=== PATIENT | female | born 1960 | race Caucasian/White ===

== ENCOUNTER → 2023-12-08 11:34 | Outpatient (REF) | payer OTHER, SELFPAY | LOC: HWRAD 11:34 | PROVIDERS: ATTENDING PHYSICIAN Internal Medicine; FAMILY PHYSICIAN Emergency Medicine | DX: M25.552 Pain in left hip (principal) | CPT/HCPCS: 73502 ==

== ENCOUNTER → 2024-03-11 11:00 | Outpatient (REF) | payer OTHER, SELFPAY | LOC: HWRAD 11:00 | PROVIDERS: ATTENDING PHYSICIAN Emergency Medicine; REFERRING PHYSICIAN Internal Medicine | DX: M25.552 Pain in left hip (principal); M25.561 Pain in right knee | CPT/HCPCS: 73502; 73564 ==

== ENCOUNTER → 2024-04-13 11:10 | Outpatient (REF) | payer OTHER, SELFPAY | LOC: HWRAD 11:10 | PROVIDERS: ATTENDING PHYSICIAN Emergency Medicine | DX: R05.1 Acute cough (principal); R07.89 Other chest pain | CPT/HCPCS: 71046 ==

== ENCOUNTER → 2024-06-01 07:02 | Outpatient (REF) | payer OTHER, SELFPAY | LOC: PAVMRI 07:02 | PROVIDERS: ATTENDING PHYSICIAN Physical Medicine & Rehabilitation Pain Medicine; FAMILY PHYSICIAN Emergency Medicine; OTHER PHYSICIAN Internal Medicine | DX: M25.552 Pain in left hip (principal); M87.052 Idiopathic aseptic necrosis of left femur | CPT/HCPCS: 73721 ==

== ENCOUNTER → 2024-06-06 10:10 | Outpatient (REF) | payer OTHER, SELFPAY | LOC: HWRAD 10:10 | PROVIDERS: ATTENDING PHYSICIAN Internal Medicine Gastroenterology; FAMILY PHYSICIAN Emergency Medicine | DX: R19.4 Change in bowel habit (principal) | CPT/HCPCS: 74018 ==

== ENCOUNTER → 2025-01-16 07:57 | Outpatient (REF) | payer OTHER, SELFPAY | LOC: EMG 07:57 | PROVIDERS: ATTENDING PHYSICIAN Emergency Medicine; OTHER PHYSICIAN Internal Medicine | DX: R20.0 Anesthesia of skin (principal); R20.2 Paresthesia of skin; G56.03 Carpal tunnel syndrome, bilateral upper limbs | CPT/HCPCS: 95886; 95911 ==

== ENCOUNTER → 2025-01-31 12:48 | Outpatient (REF) | payer OTHER, SELFPAY | LOC: HWWDC 12:48 | PROVIDERS: ATTENDING PHYSICIAN Emergency Medicine | DX: Z12.31 Encounter for screening mammogram for malignant neoplasm of breast (principal) | CPT/HCPCS: 77063; 77067 ==

== ENCOUNTER 2025-07-19 07:15 | Emergency (ER) | payer OTHER, SELFPAY ==
[2025-07-19 07:20] VITALS: BP 144/91
[2025-07-19 07:35] VITALS: BP 130/72
[2025-07-19 08:00] VITALS: BP 143/79
--- NOTE | 2025-07-19 08:54 | ED.GENMED ---
History of Present Illness
<RAMÍREZ Alexander - Last Filed: 07/19/25 09:44>
General
Chief Complaint: DVT/Possible Blood Clot
Source: patient
Exam Limitations: none
Time Seen by Provider: 07/19/25 07:48
Nursing documentation reviewed up to this point in time: agreed with
History of Present Illness
History of Present Illness:
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 Patient denies any trauma to the area. Patient was seen at her PCP 2 days ago
for these symptoms and was instructed to come to the ED for an ultrasound.
Past History
<RAMÍREZ Alexander - Last Filed: 07/19/25 09:44>
Past History
ED Past Medical History: Asthma and Other (Chronic sinusitis, MRSA, Colitis)
ED Past Surgical History: Orthopedic (Left hip replacement (Sep 2024))
Patient has exhibited threatening behavior?: No
Social History
Tobacco: Non-smoker
Alcohol: Occasional
Drug: None
Personal:
Living: with family
Employment: Employed (clothing store)
Review of Systems
<RAMÍREZ Alexander - Last Filed: 07/19/25 09:44>
Review of Systems
Allergies reviewed?: Yes
All Other Systems: ROS reviewed and negative except as documented in HPI and ROS
Constitutional: Reports no symptoms
EENT: Reports no symptoms
Respiratory: Reports no symptoms
Cardiac: Reports no symptoms
ABD/GI: Reports no symptoms
: Reports no symptoms
Musculoskeletal: Reports muscle pain (left calf pain) and edema
Skin: Reports no symptoms
Neurological: Reports no symptoms
Endocrine: Reports no symptoms
Hematologic/Lymphatic: Reports bruising (Pt reports easy bruising)
Psychiatric: Reports no symptoms
Phy Exam
<RAMÍREZ Alexander - Last Filed: 07/19/25 09:44>
General Physical Exam
General Presentation: well appearing and no apparent distress
General Skin: warm and dry
General Habitus: normal
General Mental: alert
Musculoskeletal Exam
Musculoskeletal Exam: full ROM
Skin Exam
Skin Exam: other (ecchymosis to left bloom)
Course
<RAMÍREZ Alexander - Last Filed: 07/19/25 09:44>
Orders/Labs/Results
Orders:
Orders
07/19/25 07:47
US Periph Venous LOWER Ext LT Urgent
Comment:
Reason For Exam: r/o DVT
Vital Signs
Initial and Last Documented VS:
Initial Vital Signs
Temp Pulse Resp BP Pulse Ox
98.5 F 95 16 144/91 98
07/19/25 07:20 07/19/25 07:20 07/19/25 07:20 07/19/25 07:20 07/19/25 07:20
Last Documented Vital Signs
Temp Pulse Resp BP Pulse Ox
98.5 F 95 16 151/76 99
07/19/25 07:20 07/19/25 07:20 07/19/25 07:20 07/19/25 09:21 07/19/25 09:30
<Steve Molina MD - Last Filed: 07/19/25 09:48>
Orders/Labs/Results
Orders:
Orders
07/19/25 07:47
US Periph Venous LOWER Ext LT Urgent
Comment:
Reason For Exam: r/o DVT
Vital Signs
Initial and Last Documented VS:
Initial Vital Signs
Temp Pulse Resp BP Pulse Ox
98.5 F 95 16 144/91 98
07/19/25 07:20 07/19/25 07:20 07/19/25 07:20 07/19/25 07:20 07/19/25 07:20
Last Documented Vital Signs
Temp Pulse Resp BP Pulse Ox
98.5 F 95 16 151/76 99
07/19/25 07:20 07/19/25 07:20 07/19/25 07:20 07/19/25 09:21 07/19/25 09:30
<RAMÍREZ Alexander - Last Filed: 07/19/25 09:44>
MDM/Problems Addressed
Differential Diagnosis Includes:
hematoma, cellulitis, DVT
MDM/Problems Addressed:
Left calf pain and swelling
<RAMÍREZ Alexander - Last Filed: 07/19/25 09:44>
*Pulse Oximetry
SaO2: 98
Oxygen Mode of Delivery: Room air
Patient hypoxic: no
*Critical Care Note
Total Time (30-74mins, 75-104mins- exclusive of procedures): Not Applicable
ED Attending Note
<RAMÍREZ Alexander - Last Filed: 07/19/25 09:44>
-
Portions of this chart may have been created with voice recognition software.� Occasional wrong word or��sound alike� substitutions may have occurred due to the inherent limitations of voice recognition software.
<Steve Molina MD - Last Filed: 07/19/25 09:48>
ED Attending Note
Patient seen and examined by attending physician: Yes
I performed the substantive portion of visit, reviewed & personally made and approve the management plan that is documented in note by myself or KALEB.: Yes
ED Attending Note:
65-year-old female presents with 2 days of left leg pain and swelling and color change. No fever or chills. No chest pain or shortness of breath. Seen by her primary physician with an outpatient ultrasound ordered. Unfortunately the ultrasound
could not be done for 2 weeks.
On exam patient is nontoxic in no distress. Warm and dry. Perfusing well. Mild swelling to the left lower leg with an area oval ecchymotic appearance towards the anterior tibia approximately 30 cm. Mild swelling to the left leg. No erythema
mild warmth good distal pulses and color. Good capillary refill. Motor or sensory neurovascular intact. Knee appears within normal limits
Differential would include DVT, ruptured Olson's cyst/hematoma, cellulitis. Ultrasound shows a 10 cm fluid collection most consistent with a ruptured cyst or hematoma.
Impression likely ruptured Olson's cyst or hematoma. The initial pain did start behind her knee. Doubt infectious issue that looks more ecchymotic than erythematous or cellulitic. No indication for drainage at this time. Will do antibiotics warm
compresses and follow-up with surgery.
Discharge Plan
Departure
Patient Disposition: Home (Routine Discharge)
Date of Disposition: 07/19/25
Time of Disposition: 09:41
Patient with high blood pressure during this ER visit?: Yes
Discharge Problem:
Left leg swelling., Suspect ruptured Olson's cyst versus hem
Instructions: Olson's Cyst (DC), BLOOD PRESSURE, Hematoma
Prescriptions:
New
doxycycline hyclate 100 mg tablet
100 mg PO BID 10 Days Qty: 20 0RF
No Action
multivitamin Tablet
1 tab PO DAILY
calcium carbonate-vitamin D3 [Calcium + D] 600 mg-5 mcg (200 unit) Tablet
1 tab PO DAILY
losartan 25 mg Tablet
20 mg PO DAILY
zolpidem [Ambien] 10 mg Tablet
10 mg PO HS PRN (Reason: sleep)
escitalopram oxalate 20 mg Tablet
20 mg PO DAILY
Curcumin
1 tab PO DAILY
Vitamin C
1 tab PO DAILY
Referrals:
Kiera Romero MD [Family Provider, Internal Medicine]
Solo Rousseau MD [Active, Surgical] - Follow up in 5-7 days
Activity Restrictions/Additional Instructions:
Antibiotics as directed
The prescription was called into your pharmacy
Warm compress
Call general surgery for close follow-up
Return sooner with increased pain increased swelling increased redness fever or any other concerning symptoms
Interventions
Interventions:
*Risk Screen - Suicide Last Done: 07/19/25 07:21
*General Assessment Last Done: 07/19/25 07:31
*Neglect/Abuse Screening Last Done: 07/19/25 07:31
*ED- Fall Risk Assessment Last Done: 07/19/25 07:31
*ED COVID-19 Vaccine History Last Done: 07/19/25 07:31
ED- Cardiac Assessment Last Done: 07/19/25 07:32
ED- Pulmonary Assessment Last Done: 07/19/25 07:32
ED-Peripheral Vascular Assessment Last Done: 07/19/25 07:32
ED-Skin Assessment Last Done: 07/19/25 07:33
Discharge Date and Time
Print Language: PALAUAN
[2025-07-19 09:21] VITALS: BP 151/76
== END 2025-07-19 09:56 | disposition home or self-care (01) ==
LOC: EMR 07:15
PROVIDERS: EMERGENCY PHYSICIAN Emergency Medicine; FAMILY PHYSICIAN Emergency Medicine
DX: R22.42 Localized swelling, mass and lump, left lower limb (principal); J45.909 Unspecified asthma, uncomplicated; Z86.14 Personal history of Methicillin resistant Staphylococcus aureus infection; Z96.642 Presence of left artificial hip joint
CPT/HCPCS: 99284; 93971